=== PATIENT | male | born 1985 | race Caucasian/White ===

== ENCOUNTER 2023-02-02 11:52 | Inpatient (IN) | payer MEDICAID ==
[~2023-02-02] VITALS: Ht 162.6 cm; Wt 76.7 kg
[2023-02-02] VITALS (10 sets, daily range): BP systolic 111–128; BP diastolic 46–64; PULSE 112–119; RESP 18–28; TEMP 97–99
[2023-02-02 12:29] LABS: MEAN CORPUSCULAR HEMOGLOBIN 20.1 pg (28.0-32.0); MEAN CORPUSCULAR HGB CONC 24.7 g/dL (31.0-37.0); MEAN CORPUSCULAR VOLUME 81.6 fL (80.0-94.0); MEAN PLATELET VOLUME 8.8 fl (7.4-10.4); PLATELET 247 x1000/uL (130-400); RED BLOOD CELL COUNT 1.22 mill/uL (4.7-6.1); RED CELL DISTRIBUTION WIDTH 24.3 % (11.6-14.6)
[2023-02-02 12:39] LABS: CHLORIDE 100 mEq/L (98-107); INDEX HEMOLYSI 1 (1-3); INDEX ICTERIC 2 (1-4); INDEX LIPEMIC 1 (1-3); POTASSIUM 3.5 mEq/L (3.5-5.1); SODIUM 131 mEq/L (136-145)
[2023-02-02] MEDS ORDERED: SODIUM CHLORIDE 0.9% 1,000 ML IV ONE (12:45)
[2023-02-02 12:51] LABS: ALANINE AMINOTRANSFERASE 46 IU/L (13-61); ALBUMIN 1.8 g/dL (3.4-5.0); CALCIUM 7.1 mg/dL (8.5-10.1); CARBON DIOXIDE 14 mEq/L (21-32); CREATININE 0.6 mg/dL (0.6-1.3); GLUCOSE 128 mg/dL (70-105); PROTEIN TOTAL 5.9 g/dL (6.0-8.3); TROPONIN I HIGH SENSITIVITY 9 ng/L (<78); UREA NITROGEN BLOOD 19 mg/dL (7-21)
[2023-02-02 12:52] LABS: INDEX HEMOLYSI 1 (1-3)
[2023-02-02 12:54] LABS: DIFFERENTIAL COMMENT 1
[2023-02-02 12:55] LABS: AMMONIA 38 uMol/L (<32)
[2023-02-02 13:00] LABS: HEMOGLOBIN. 2.5 g/dL (14.0-18.0)
[2023-02-02] MEDS ORDERED: PANTOPRAZOLE SODIUM 40 MG/VIAL IV ONE (13:00)
[2023-02-02] MEDS ORDERED: CEFTRIAXONE 1GM PREMIX 50 ML IV ONE (13:00)
[2023-02-02 13:03] LABS: INR 2.6; PARTIAL THROMBOPLASTIN TIME 30.4 sec (23.4-31.0); PROTHROMBIN TIME 26.3 sec (9.6-11.0)
[2023-02-02] MEDS ORDERED: CEFTRIAXONE 2 G in DEXTROSE 5% WATER 50 ML IV SCH (13:15)
[2023-02-02 13:26] LABS: ANISOCYTOSIS 3+; HYPOCHROMASIA 2+; MICROCYTOSIS 1+; PLATELET ESTIMATE NORMAL
[2023-02-02 13:59] LABS: LACTIC ACID 14.5 mmol/L (0.4-2.0)
[2023-02-02] MEDS ORDERED: ACETAMINOPHEN 325MG TABLET PO PRN ×2 (15:15)
[2023-02-02] MEDS ORDERED: LACTULOSE 20G/30ML UDC PO NR (15:15)
[2023-02-02] MEDS ORDERED: HYDROCODONE/ACETAMINOPHEN 5/325MG TABLET PO PRN (15:15)
[2023-02-02] MEDS ORDERED: MAGNESIUM/ALUMINUM HYDROXIDE/SIMETHICONE 30ML UDC PO PRN (15:15)
[2023-02-02] MEDS ORDERED: DOCUSATE SODIUM 100MG CAPSULE PO PRN (15:15)
[2023-02-02] MEDS ORDERED: IPRATROPIUM/ALBUTEROL 0.5-3(2.5)MG/3ML NEB HHN PRN (15:15)
[2023-02-02] MEDS ORDERED: CLONIDINE 0.1MG TABLET PO PRN (15:15)
[2023-02-02] MEDS ORDERED: ONDANSETRON HCL 4MG/2ML INJ IV PRN (15:15)
[2023-02-02] MEDS ORDERED: GUAIFENESIN 200MG/10ML SUGAR FREE UDC PO PRN (15:15)
[2023-02-02 15:27] LABS: ASPARTATE AMINOTRANSFERASE 108 IU/L (15-37)
[2023-02-02] MEDS ORDERED: AZITHROMYCIN 500MG/250ML 250 ML IV NR (15:30)
[2023-02-02] MEDS ORDERED: LORAZEPAM 2MG/ML CPJ IV PRN ×2 (15:30→18:15)
[2023-02-02] MEDS ORDERED: FOLIC ACID 1 MG, THIAMINE HCL 100 MG, MVI, ADULT NO.1 10 ML in DEXTROSE 5% WATER 1,000 ML IV ONE ×4 (15:30)
[2023-02-02] MEDS ORDERED: NALOXONE HCL 0.4MG/ML VIAL IV PRN (15:45)
[2023-02-02] MEDS: SODIUM CHLORIDE 0.9% 1,000 ML IV SCH (17:04)
[2023-02-02 17:54] LABS: INDEX HEMOLYSI 1 (1-3); INDEX ICTERIC 2 (1-4); INDEX LIPEMIC 1 (1-3)
[2023-02-02 18:00] LABS: HAPTOGLOBIN 75 mg/dL (30-200); IRON 17 ug/dL (50-175); LACTATE DEHYDROGENASE 333 IU/L (100-240); TOTAL IRON BINDING CAPACITY 223 ug/dL (250-450)
[2023-02-02 18:24] LABS: FOLIC ACID (FOLATE) SERUM 8.1 ng/mL (>5.38)
[2023-02-02] MEDS: AZITHROMYCIN 500 MG in DEXT 5% WATER 250 ML IV SCH (20:45)
[2023-02-02] MEDS: PANTOPRAZOLE SODIUM 40 MG/VIAL IV SCH (20:46)
[2023-02-02] MEDS ORDERED: LACTULOSE 20G/30ML UDC PO PRN (21:00)
[2023-02-02] MEDS: CHLORDIAZEPOXIDE 25MG CAPSULE PO SCH (21:52)
[2023-02-02 21:53] LABS: INDEX HEMOLYSI 1 (1-3); INDEX ICTERIC 2 (1-4); INDEX LIPEMIC 1 (1-3)
[2023-02-02 21:57] LABS: IRON 10 ug/dL (50-175); TOTAL IRON BINDING CAPACITY 214 ug/dL (250-450)
[2023-02-03] VITALS (16 sets, daily range): BP systolic 97–117; BP diastolic 41–67; PULSE 94–119; RESP 19–34; TEMP 97.8–99.8
[2023-02-03 01:44] LABS: HEMATOCRIT 21.8 % (42.0-52.0); MEAN CORPUSCULAR HEMOGLOBIN 24.8 pg (28.0-32.0); MEAN CORPUSCULAR HGB CONC 31.5 g/dL (31.0-37.0); MEAN CORPUSCULAR VOLUME 78.9 fL (80.0-94.0); PLATELET 136 x1000/uL (130-400); RED BLOOD CELL COUNT 2.76 mill/uL (4.7-6.1); RED CELL DISTRIBUTION WIDTH 16.9 % (11.6-14.6); WHITE BLOOD COUNT 19.6 x1000/uL (4.5-11.0)
[2023-02-03 02:00] LABS: HEMOGLOBIN 6.9 g/dL (14.0-18.0)
[2023-02-03] MEDS: CHLORDIAZEPOXIDE 25MG CAPSULE PO SCH ×3 (05:20→22:21)
[2023-02-03 06:37] LABS: CLARITY URINE CLEAR (CLEAR); COLOR URINE ORANGE (YELLOW); GLUCOSE URINE NEGATIVE (NEGATIVE); KETONES URINE NEGATIVE (NEGATIVE); LEUKOCYTE ESTERASE URINE TRACE (NEGATIVE); NITRITE URINE POSITIVE (NEGATIVE); OCCULT BLOOD URINE NEGATIVE (NEGATIVE); PH URINE 6.5 (4.5-8.0); PROTEIN URINE NEGATIVE (NEGATIVE); SPECIFIC GRAVITY URINE 1.022 (1.005-1.030)
[2023-02-03 06:40] LABS: BACTERIA URINE NONE SEEN; RBC URINE 0-2 /hpf (0-2); WBC URINE 0-2 /hpf (0-2); YEAST URINE NONE SEEN
[2023-02-03 06:55] LABS: *AMPHETAMINES SCREEN URINE NEGATIVE (NEGATIVE); *BARBITURATES SCREEN URINE NEGATIVE (NEGATIVE); *BENZODIAZEPINES SCREEN URINE NEGATIVE (NEGATIVE); *COCAINE SCREEN URINE NEGATIVE (NEGATIVE); CANNABINOID URINE SCREEN NEGATIVE (NEGATIVE); ECSTASY MDMA SCREEN URINE NEGATIVE (NEGATIVE); OPIATES URINE SCREEN NEGATIVE (NEGATIVE); PHENCYCLIDINE URINE SCREEN NEGATIVE (NEGATIVE)
[2023-02-03 07:08] LABS: HEMATOCRIT. 24.5 % (42.0-52.0); HEMOGLOBIN. 7.9 g/dL (14.0-18.0); MEAN CORPUSCULAR HEMOGLOBIN 25.3 pg (28.0-32.0); MEAN CORPUSCULAR HGB CONC 32.3 g/dL (31.0-37.0); MEAN CORPUSCULAR VOLUME 78.3 fL (80.0-94.0); MEAN PLATELET VOLUME 7.9 fl (7.4-10.4); PLATELET 134 x1000/uL (130-400); RED BLOOD CELL COUNT 3.12 mill/uL (4.7-6.1); RED CELL DISTRIBUTION WIDTH 17.3 % (11.6-14.6); WHITE BLOOD COUNT 16.2 x1000/uL (4.5-11.0)
[2023-02-03 07:14] LABS: SQUAMOUS EPITHELIAL CELL URINE FEW /lpf (RARE/1+)
[2023-02-03 07:22] LABS: AMMONIA 56 uMol/L (<32)
[2023-02-03 07:28] LABS: DIFFERENTIAL COMMENT 1
[2023-02-03 07:32] LABS: INR 2.3; PROTHROMBIN TIME 23.3 sec (9.6-11.0)
[2023-02-03 07:53] LABS: CHLORIDE 104 mEq/L (98-107); INDEX HEMOLYSI 1 (1-3); INDEX ICTERIC 2 (1-4); INDEX LIPEMIC 1 (1-3); POTASSIUM 3.1 mEq/L (3.5-5.1); SODIUM 132 mEq/L (136-145)
[2023-02-03 08:00] LABS: ALANINE AMINOTRANSFERASE 103 IU/L (13-61); ALBUMIN 1.8 g/dL (3.4-5.0); ASPARTATE AMINOTRANSFERASE 243 IU/L (15-37); BILIRUBIN TOTAL 4.4 mg/dL (0.1-1.0); CALCIUM 6.9 mg/dL (8.5-10.1); CARBON DIOXIDE 22 mEq/L (21-32); CREATININE 0.4 mg/dL (0.6-1.3); GLUCOSE 102 mg/dL (70-105); HDL CHOLESTEROL 18 mg/dL (40-59); LDL CHOLESTEROL 33 mg/dL (5-100); PROTEIN TOTAL 5.1 g/dL (6.0-8.3); TRIGLYCERIDE 67 mg/dL (0-150); UREA NITROGEN BLOOD 12 mg/dL (7-21)
[2023-02-03 08:17] LABS: CHOLESTEROL < 50 mg/dL (<200)
[2023-02-03 09:11] LABS: ALBUMIN 1.8 g/dL (3.4-5.0); BILIRUBIN DIRECT 1.9 mg/dL (0.0-0.2); BILIRUBIN TOTAL 4.6 mg/dL (0.1-1.0)
[2023-02-03] MEDS: CEFTRIAXONE 1,000 MG in DEXTROSE 5% WATER 50 ML IV SCH (09:26)
[2023-02-03] MEDS: PANTOPRAZOLE SODIUM 40 MG/VIAL IV SCH ×2 (09:27→20:38)
[2023-02-03] MEDS ORDERED: AZITHROMYCIN 500 MG in DEXT 5% WATER 250 ML IV SCH (10:00)
[2023-02-03] MEDS: SODIUM CHLORIDE 0.9% 1,000 ML IV SCH ×2 (13:19→16:34)
[2023-02-03] MEDS: KCL 20MEQ/100ML PREMIX 100 ML IV SCH ×2 (13:20→16:33)
[2023-02-03 14:33] LABS: ANISOCYTOSIS 1+; HYPOCHROMASIA 1+; PLATELET ESTIMATE NORMAL
[2023-02-03] MEDS ORDERED: CEFTRIAXONE 1GM PREMIX 50 ML IV SCH (15:15)
[2023-02-03 16:16] LABS: HEMATOCRIT 25.5 % (42.0-52.0); HEMOGLOBIN 8.2 g/dL (14.0-18.0); MEAN CORPUSCULAR HEMOGLOBIN 25.1 pg (28.0-32.0); MEAN CORPUSCULAR VOLUME 78.6 fL (80.0-94.0); PLATELET 132 x1000/uL (130-400); RED BLOOD CELL COUNT 3.24 mill/uL (4.7-6.1); RED CELL DISTRIBUTION WIDTH 17.9 % (11.6-14.6); WHITE BLOOD COUNT 13.6 x1000/uL (4.5-11.0)
[2023-02-03] MEDS: IRON SUCROSE COMPLEX 100 MG/5 ML ML IV SCH (18:28)
[2023-02-03] MEDS: LACTULOSE 20G/30ML UDC PO SCH (18:28)
[2023-02-03] MEDS ORDERED: OCTREOTIDE ACETATE 50 MCG/ML 1ML IV NR (19:00)
[2023-02-03 20:25] LABS: HEMATOCRIT 23.7 % (42.0-52.0); HEMOGLOBIN 7.6 g/dL (14.0-18.0); MEAN CORPUSCULAR HGB CONC 32.1 g/dL (31.0-37.0); MEAN CORPUSCULAR VOLUME 77.8 fL (80.0-94.0); PLATELET 122 x1000/uL (130-400); RED BLOOD CELL COUNT 3.05 mill/uL (4.7-6.1); RED CELL DISTRIBUTION WIDTH 17.8 % (11.6-14.6); WHITE BLOOD COUNT 12.4 x1000/uL (4.5-11.0)
[2023-02-03] MEDS: AZITHROMYCIN 500 MG in DEXT 5% WATER 250 ML IV SCH (20:38)
[2023-02-03] MEDS: OCTREOTIDE 1,000 MCG in SODIUM CHLORIDE 0.9% 98 ML IV SCH (20:38)
[2023-02-04] VITALS: BP 88/45; PULSE 93; RESP 17; TEMP 99.1
[2023-02-04] MEDS: LACTULOSE 20G/30ML UDC PO SCH ×3 (02:30→18:10)
[2023-02-04 02:40] LABS: HEMATOCRIT 23.6 % (42.0-52.0); HEMOGLOBIN 7.5 g/dL (14.0-18.0); MEAN CORPUSCULAR HEMOGLOBIN 25.3 pg (28.0-32.0); MEAN CORPUSCULAR HGB CONC 31.8 g/dL (31.0-37.0); MEAN CORPUSCULAR VOLUME 79.5 fL (80.0-94.0); PLATELET 125 x1000/uL (130-400); RED BLOOD CELL COUNT 2.96 mill/uL (4.7-6.1); RED CELL DISTRIBUTION WIDTH 17.7 % (11.6-14.6); WHITE BLOOD COUNT 13.7 x1000/uL (4.5-11.0)
[2023-02-04 04:00] VITALS: BP 93/44; PULSE 88; RESP 21; TEMP 98.9
[2023-02-04] MEDS: CHLORDIAZEPOXIDE 25MG CAPSULE PO SCH ×3 (05:53→21:27)
[2023-02-04 07:14] LABS: AMMONIA 60 uMol/L (<32)
[2023-02-04 07:17] LABS: HEMATOCRIT 23.2 % (42.0-52.0); HEMOGLOBIN 7.5 g/dL (14.0-18.0); MEAN CORPUSCULAR HEMOGLOBIN 25.7 pg (28.0-32.0); MEAN CORPUSCULAR HGB CONC 32.4 g/dL (31.0-37.0); MEAN CORPUSCULAR VOLUME 79.3 fL (80.0-94.0); PLATELET 118 x1000/uL (130-400); RED BLOOD CELL COUNT 2.92 mill/uL (4.7-6.1); RED CELL DISTRIBUTION WIDTH 17.4 % (11.6-14.6)
[2023-02-04 07:40] LABS: CHLORIDE 105 mEq/L (98-107); INDEX HEMOLYSI 1 (1-3); INDEX ICTERIC 2 (1-4); INDEX LIPEMIC 1 (1-3); POTASSIUM 3.3 mEq/L (3.5-5.1); SODIUM 133 mEq/L (136-145)
[2023-02-04 07:46] LABS: CALCIUM 6.6 mg/dL (8.5-10.1); CARBON DIOXIDE 22 mEq/L (21-32); CREATININE 0.6 mg/dL (0.6-1.3); GLUCOSE 85 mg/dL (70-105); UREA NITROGEN BLOOD 11 mg/dL (7-21)
[2023-02-04 08:00] VITALS: BP 97/54; PULSE 91; RESP 23; TEMP 99.1
[2023-02-04] MEDS ORDERED: MAGNESIUM 2 G PREMIX 50 ML IV SCH (08:30)
[2023-02-04] MEDS: SODIUM CHLORIDE 0.9% 1,000 ML IV SCH (08:44)
[2023-02-04] MEDS: CEFTRIAXONE 1,000 MG in DEXTROSE 5% WATER 50 ML IV SCH (08:45)
[2023-02-04] MEDS: PANTOPRAZOLE SODIUM 40 MG/VIAL IV SCH ×2 (08:45→21:27)
[2023-02-04] MEDS: KCL 20MEQ/100ML PREMIX 100 ML IV SCH ×2 (08:45→10:03)
[2023-02-04] MEDS: DEXT 5%/0.9% NACL 1,000 ML IV SCH ×2 (10:28→23:20)
[2023-02-04] MEDS ORDERED: CEFAZOLIN 1000MG PREMIX 50 ML IV NR (11:00)
[2023-02-04 12:00] VITALS: BP 108/76; PULSE 84; RESP 18; TEMP 97.3
[2023-02-04 14:04] LABS: HEMATOCRIT 27.3 % (42.0-52.0); HEMOGLOBIN 8.4 g/dL (14.0-18.0); MEAN CORPUSCULAR HEMOGLOBIN 24.9 pg (28.0-32.0); MEAN CORPUSCULAR HGB CONC 30.8 g/dL (31.0-37.0); MEAN CORPUSCULAR VOLUME 80.9 fL (80.0-94.0); PLATELET 127 x1000/uL (130-400); RED BLOOD CELL COUNT 3.37 mill/uL (4.7-6.1); RED CELL DISTRIBUTION WIDTH 17.6 % (11.6-14.6); WHITE BLOOD COUNT 12.9 x1000/uL (4.5-11.0)
[2023-02-04] MEDS: OCTREOTIDE 1,000 MCG in SODIUM CHLORIDE 0.9% 98 ML IV SCH (14:13)
[2023-02-04 14:40] LABS: ALBUMIN 1.9 g/dL (3.4-5.0); BILIRUBIN DIRECT 2.4 mg/dL (0.0-0.2); BILIRUBIN TOTAL 4.3 mg/dL (0.1-1.0); PROTEIN TOTAL 5.8 g/dL (6.0-8.3)
[2023-02-04 16:00] VITALS: BP 107/70; PULSE 81; RESP 19; TEMP 97.2
[2023-02-04 16:10] LABS: PROTHROMBIN TIME 20.7 sec (9.6-11.0)
[2023-02-04] MEDS ORDERED: PHYTONADIONE 10MG/ML INJ SUBCUT NR (16:15)
[2023-02-04] MEDS: IRON SUCROSE COMPLEX 100 MG/5 ML ML IV SCH (18:10)
[2023-02-04 18:50] LABS: HEMATOCRIT 26.9 % (42.0-52.0); HEMOGLOBIN 8.3 g/dL (14.0-18.0); MEAN CORPUSCULAR HEMOGLOBIN 25.4 pg (28.0-32.0); MEAN CORPUSCULAR VOLUME 81.9 fL (80.0-94.0); PLATELET 113 x1000/uL (130-400); RED BLOOD CELL COUNT 3.28 mill/uL (4.7-6.1); RED CELL DISTRIBUTION WIDTH 17.8 % (11.6-14.6); WHITE BLOOD COUNT 12.3 x1000/uL (4.5-11.0)
[2023-02-04 20:00] VITALS: BP 105/63; PULSE 109; RESP 23; TEMP 98
[2023-02-04] MEDS: AZITHROMYCIN 500 MG in DEXT 5% WATER 250 ML IV SCH (21:27)
[2023-02-05] VITALS (25 sets, daily range): BP systolic 91–120; BP diastolic 45–79; PULSE 72–98; RESP 13–23; TEMP 97.2–98.9
[2023-02-05] MEDS: LACTULOSE 20G/30ML UDC PO SCH ×3 (02:30→17:51)
[2023-02-05 04:56] LABS: INDEX HEMOLYSI 1 (1-3)
[2023-02-05 04:59] LABS: AMMONIA 36 uMol/L (<32)
[2023-02-05 05:58] LABS: BASOPHILS % 0.4 % (0.0-2.0); EOSINOPHILS % 1.6 % (0.0-5.0); HEMATOCRIT. 24.8 % (42.0-52.0); HEMOGLOBIN. 7.7 g/dL (14.0-18.0); LYMPHOCYTES % 7.6 % (20.0-50.0); MEAN CORPUSCULAR HEMOGLOBIN 25.5 pg (28.0-32.0); MEAN CORPUSCULAR VOLUME 82.2 fL (80.0-94.0); MEAN PLATELET VOLUME 8.1 fl (7.4-10.4); MONOCYTES % 13.1 % (2.0-8.0); NEUTROPHILS % 77.3 % (40.0-76.0); PLATELET 122 x1000/uL (130-400); RED BLOOD CELL COUNT 3.01 mill/uL (4.7-6.1); RED CELL DISTRIBUTION WIDTH 17.7 % (11.6-14.6)
[2023-02-05] MEDS: CHLORDIAZEPOXIDE 25MG CAPSULE PO SCH ×3 (06:07→21:00)
[2023-02-05 06:21] LABS: INR 1.8; PROTHROMBIN TIME 18.9 sec (9.6-11.0)
[2023-02-05 07:04] LABS: DIFFERENTIAL COMMENT 1
[2023-02-05 07:10] LABS: CHLORIDE 107 mEq/L (98-107); INDEX HEMOLYSI 1 (1-3); INDEX ICTERIC 2 (1-4); INDEX LIPEMIC 1 (1-3); POTASSIUM 3.2 mEq/L (3.5-5.1); SODIUM 136 mEq/L (136-145)
[2023-02-05 07:20] LABS: ALANINE AMINOTRANSFERASE 83 IU/L (13-61); ALBUMIN 1.8 g/dL (3.4-5.0); ASPARTATE AMINOTRANSFERASE 93 IU/L (15-37); BILIRUBIN DIRECT 1.5 mg/dL (0.0-0.2); BILIRUBIN TOTAL 3.4 mg/dL (0.1-1.0); CALCIUM 6.8 mg/dL (8.5-10.1); CARBON DIOXIDE 23 mEq/L (21-32); CREATININE 0.6 mg/dL (0.6-1.3); GLUCOSE 87 mg/dL (70-105); PROTEIN TOTAL 5.2 g/dL (6.0-8.3); UREA NITROGEN BLOOD 9 mg/dL (7-21)
[2023-02-05] MEDS ORDERED: POTASSIUM CHLORIDE INJ 40 MEQ in DEXT 5% WATER 250 ML IV NR (09:00)
[2023-02-05] MEDS ORDERED: ETOMIDATE 2MG/ML 10ML VIAL IV ONE ×2 (09:33→10:06)
[2023-02-05] MEDS ORDERED: ONDANSETRON HCL 4MG/2ML INJ ONE (09:33)
[2023-02-05] MEDS ORDERED: DEXAMETHASONE 4MG/ML 1ML VIAL ONE (10:06)
[2023-02-05] MEDS: CEFTRIAXONE 1,000 MG in DEXTROSE 5% WATER 50 ML IV SCH (12:37)
[2023-02-05] MEDS: PANTOPRAZOLE SODIUM 40 MG/VIAL IV SCH ×2 (12:37→20:56)
[2023-02-05] MEDS: SUCRALFATE 1 G/10 ML UDC PO SCH ×3 (12:42→20:56)
[2023-02-05] MEDS: DEXT 5%/0.9% NACL 1,000 ML IV SCH (12:43)
[2023-02-05] MEDS: OCTREOTIDE 1,000 MCG in SODIUM CHLORIDE 0.9% 98 ML IV SCH (14:41)
[2023-02-05] MEDS: IRON SUCROSE COMPLEX 100 MG/5 ML ML IV SCH (17:51)
[2023-02-06] VITALS: BP 101/59; PULSE 74; RESP 18; TEMP 98.7
[2023-02-06] MEDS: DEXT 5%/0.9% NACL 1,000 ML IV SCH (02:46)
[2023-02-06] MEDS: LACTULOSE 20G/30ML UDC PO SCH (02:49)
[2023-02-06 04:00] VITALS: BP 105/60; PULSE 75; RESP 20; TEMP 98
[2023-02-06] MEDS: CHLORDIAZEPOXIDE 25MG CAPSULE PO SCH (05:40)
[2023-02-06 05:56] LABS: HEMATOCRIT. 29.7 % (42.0-52.0); HEMOGLOBIN. 9.2 g/dL (14.0-18.0); INR 1.8; MEAN CORPUSCULAR HEMOGLOBIN 26.1 pg (28.0-32.0); MEAN CORPUSCULAR HGB CONC 31.1 g/dL (31.0-37.0); MEAN CORPUSCULAR VOLUME 84.1 fL (80.0-94.0); MEAN PLATELET VOLUME 7.9 fl (7.4-10.4); PLATELET 121 x1000/uL (130-400); RED BLOOD CELL COUNT 3.53 mill/uL (4.7-6.1); RED CELL DISTRIBUTION WIDTH 17.8 % (11.6-14.6); WHITE BLOOD COUNT 9.1 x1000/uL (4.5-11.0)
[2023-02-06 06:08] LABS: DIFFERENTIAL COMMENT 1
[2023-02-06 08:00] VITALS: BP 104/69; PULSE 75; RESP 19; TEMP 98.1
[2023-02-06] MEDS: PANTOPRAZOLE SODIUM 40 MG/VIAL IV SCH (08:37)
[2023-02-06] MEDS: SUCRALFATE 1 G/10 ML UDC PO SCH (08:37)
[2023-02-06] MEDS: OCTREOTIDE 1,000 MCG in SODIUM CHLORIDE 0.9% 98 ML IV SCH (08:38)
[2023-02-06 08:47] LABS: CHLORIDE 113 mEq/L (98-107); INDEX HEMOLYSI 1 (1-3); INDEX ICTERIC 2 (1-4); INDEX LIPEMIC 1 (1-3); POTASSIUM 3.5 mEq/L (3.5-5.1); SODIUM 143 mEq/L (136-145)
[2023-02-06 08:53] LABS: CALCIUM 6.5 mg/dL (8.5-10.1); CARBON DIOXIDE 22 mEq/L (21-32); CREATININE 0.5 mg/dL (0.6-1.3); GLUCOSE 144 mg/dL (70-105); UREA NITROGEN BLOOD 5 mg/dL (7-21)
[2023-02-06] MEDS: CEFTRIAXONE 1,000 MG in DEXTROSE 5% WATER 50 ML IV SCH (10:22)
[2023-02-06 11:50] LABS: HEMATOCRIT 29.2 % (42.0-52.0); HEMOGLOBIN 8.1 g/dL (14.0-18.0)
[2023-02-06 11:51] LABS: NUCLEATED RED BLOOD CELLS 4 /100 WBC; PLATELET ESTIMATE NORMAL
[2023-02-06 11:52] LABS: ANISOCYTOSIS 2+
[2023-02-06 12:00] VITALS: BP 92/51; PULSE 69; RESP 16; TEMP 97.6
[2023-02-06] MEDS ORDERED: LACT10SO7 PO (13:27)
[2023-02-06] MEDS ORDERED: SUCR1ORA15 PO (13:27)
[2023-02-06] MEDS ORDERED: PROT40 PO (13:27)
[2023-02-06 15:37] VITALS: BP 95/72; PULSE 78; TEMP 97; O2SAT 95
== END 2023-02-06 16:30 | disposition home or self-care (01) | DRG 720 ==
LOC: ER 11:52 → 5EST 14:33 → ENRESERV 15:01
PROVIDERS: ADMIT Internal Medicine; ATTEND Internal Medicine
PROC: 30233K1 Transfusion of Nonautologous Frozen Plasma into Peripheral Vein, Percutaneous Approach (ICD-10-PCS; 2023-02-02)
PROC: 06L38CZ Occlusion of Esophageal Vein with Extraluminal Device, Via Natural or Artificial Opening Endoscopic (ICD-10-PCS; principal; 2023-02-05)
PROC: 0DB78ZX Excision of Stomach, Pylorus, Via Natural or Artificial Opening Endoscopic, Diagnostic (ICD-10-PCS; 2023-02-05)
PROC: 30233N1 Transfusion of Nonautologous Red Blood Cells into Peripheral Vein, Percutaneous Approach (ICD-10-PCS; 2023-02-05)
DX: A41.9 Sepsis, unspecified organism (principal); R57.8 Other shock; I85.11 Secondary esophageal varices with bleeding; E72.20 Disorder of urea cycle metabolism, unspecified; E87.20 Acidosis, unspecified; K22.6 Gastro-esophageal laceration-hemorrhage syndrome; D68.9 Coagulation defect, unspecified; E87.1 Hypo-osmolality and hyponatremia; E83.51 Hypocalcemia; E88.09 Other disorders of plasma-protein metabolism, not elsewhere classified; K70.9 Alcoholic liver disease, unspecified; E86.0 Dehydration; D50.9 Iron deficiency anemia, unspecified; E83.42 Hypomagnesemia; E87.6 Hypokalemia; R18.8 Other ascites; F10.239 Alcohol dependence with withdrawal, unspecified; R73.9 Hyperglycemia, unspecified; R74.01 Elevation of levels of liver transaminase levels; K74.60 Unspecified cirrhosis of liver; K31.9 Disease of stomach and duodenum, unspecified; K29.70 Gastritis, unspecified, without bleeding
CPT/HCPCS: 36415; 71045; 76700; 80048; 80053; 80061; 80076; 80305; 80320; 81003; 82140; 82270; 82607; 82728; 82746; 83010; 83540; 83550; 83605; 83615; 83735; 83880; 84145; 84484; 85014; 85018; 85025; 85027; 85044; 85384; 86850; 86900; 86920; 86927; 88305; 93005; 93970; 97161; 97165; 99291; C9113; J0456; J0690; J0696; J1100; J2354; J2405; J3411; J3430; J3475; J3480; J3490; J7030; J7042; J7050; J7060; J7070; P9016; P9017; G0480